=== PATIENT | female | born 1975 | race Caucasian/White ===

== ENCOUNTER 2016-12-28 12:01 | Inpatient (IN) | payer OTHER ==
[~2016-12-28] VITALS: Ht 149.9 cm; Wt 54.4 kg
[2016-12-28] MEDS ORDERED: MULTCAP8 PO (12:15)
[2016-12-28] MEDS ORDERED: LIDOCAINE 4% CREAM 5GM (LMX4) TOP ONE (14:00)
[2016-12-28] MEDS ORDERED: cefTRIAXone SOD 2 GM VIAL (J0696) IM ONE (14:00)
[2016-12-28] MEDS ORDERED: fentaNYL 100 MCG/2 ML INJECTION (J3010) IV ONE ×2 (14:00→16:30)
[2016-12-28] MEDS ORDERED: LIDOCAINE 2% MDV 20 ML VIAL SC ONE (14:00)
[2016-12-28] MEDS ORDERED: CLINDAMYCIN 600 MG in APPROPRIATE DILUENT 1 EA IV ONE (14:00)
[2016-12-28 14:39] LABS: BASO % 0.3 % (0.0-1.0); EOS # 0.4 K/mm3 (0.0-0.50); EOS % 1.8 % (0.0-3.0); LARGE UNSTAINED CELL # 0.1 K/mm3 (0.0-0.4); LARGE UNSTAINED CELL % 0.6 % (0.0-4.0); LYMPH # 2.4 K/mm3 (1.5-4.5); LYMPH % 11.7 % (24.0-44.0); MEAN CORPUSCULAR HEMOGLOBIN 34.8 pg (27.0-33.0); MEAN CORPUSCULAR HGB CONC 36.3 g/dl (32.0-36.5); MONO # 0.6 K/mm3 (0.0-0.8); NEUTROPHILS # 16.7 K/mm3 (1.8-7.7); NEUTROPHILS % 82.6 % (36.0-66.0); PLATELET COUNT, AUTOMATED 299 k/mm3 (150-450); RED CELL DISTRIBUTION WIDTH 11.8 % (11.5-14.5); WHITE BLOOD COUNT 18.6 K/mm3 (4.0-10.0)
[2016-12-28 14:57] LABS: ANION GAP 9 MEQ/L (8-16); BLOOD UREA NITROGEN 10 MG/DL (7-18); CALCIUM LEVEL 8.4 MG/DL (8.5-10.1); CARBON DIOXIDE LEVEL 27 MEQ/L (21-32); CHLORIDE LEVEL 103 MEQ/L (98-107); CREATININE FOR GFR 0.81 MG/DL (0.55-1.02); GLOMERULAR FILTRATION RATE > 60.0 (>58); GLUCOSE, FASTING 94 MG/DL (70-105); POTASSIUM SERUM 3.3 MEQ/L (3.5-5.1); SODIUM LEVEL 139 MEQ/L (136-145)
[2016-12-28] MEDS ORDERED: cefTRIAXone SOD 2 GM in D5W MINI-BAG PLUS 50 ML IV ONE (15:00)
[2016-12-28 15:07] LABS: ERYTHROCYTE SEDIMENTATION RATE 49 mm/hr (0-20)
[2016-12-28] MEDS ORDERED: ISOVUE-370 76% 100ML VIAL (Q9967) As Ordered ONE (15:29)
[2016-12-28] MEDS ORDERED: VITMTA PO (15:40)
--- NOTE | 2016-12-28 16:13 | REP ---
CT of the pelvis with IV contrast: The patient is scanned prone for evaluation of the right buttocks abscess: There is a focal soft tissue mass in the subcutaneous fat of the right buttocks measuring 2.7 cm diameter with edema of the lower overlying skin. There is also edema in the adjacent subcutaneous fat. There is no focal fluid collection within this mass or adjacent to the mass. No tract is identified to the gluteal muscles or pelvis. Impression: Focal soft tissue mass with adjacent edema in the adjacent skin and subcutaneous fat compatible with an inflammatory lesion. There is no focal fluid collection at this time. No identifiable tract. Signed by Christopher Cornelius MD 12/28/2016 04:04 P
[2016-12-28 18:55] VITALS: BP 113/58
[2016-12-28] MEDS ORDERED: POTASSIUM CHLORIDE 10 MEQ SR TABLET PO ONE (19:30)
[2016-12-28] MEDS ORDERED: MORPHINE 2 MG/ML 1ML SYRINGE IV PRN (19:30)
[2016-12-28 20:00] VITALS: BP 109/57
[2016-12-28] MEDS ORDERED: VANCOMYCIN HCL 1,000 MG, VIAL MATE ADAPTER 1 EACH in D5W 250 ML IV SCH (20:00)
--- NOTE | 2016-12-28 20:41 | HPE ---
DATE OF ADMISSION: 12/28/2016 REASON FOR ADMISSION: Cellulitis. PRIMARY CARE PROVIDER: Dr. Granado at [facility]. HISTORY OF PRESENT ILLNESS: The patient is a 41-year-old female with no past medical history who presented to the emergency room complaining of right buttock pain and swelling. The patient stated she thought it started out as a bug bite last Thursday, but has gotten progressively worse. This morning she started having chills and fevers and that is why she presented to the emergency room (ER). In the ER the patient was noted to have a large buttock cellulitis. She was unable to tolerate an ultrasound to the area so CT scan was ordered of her pelvis which showed a focal soft tissue mass with adjacent edema in the adjacent skin and subcutaneous fat compatible with an inflammatory lesion. No focal fluid collection at this time and no identifiable tract. The patient was initiated on ceftriaxone and clindamycin in the emergency room. She was started on intravenous (IV) fluids and hospitalist was called for the admission. REVIEW OF SYSTEMS: 12-point review of systems was obtained, all which was negative except for those mentioned above. PAST MEDICAL HISTORY: None. PAST SURGICAL HISTORY: Left hand surgery and removal of some skin lipomas. ALLERGIES: None. SOCIAL HISTORY: The patient smokes half a pack per day for the past 25 years. Drinks occasionally. Denies any drug use. Lives at home with her fiance. FAMILY HISTORY: Mother's side significant for heart disease and diabetes. HOME MEDICATIONS: The patient only takes a daily multivitamin. PHYSICAL FINDINGS: VITAL SIGNS: Temperature on admission was 98.6, pulse 80, respiratory rate 16, blood pressure is 121/69, pulse oximetry 100% on room air. HEENT: Pupils equal, round, reactive to light and accommodation. NECK: Supple. No jugular venous distention (JVD). LUNGS: Clear to auscultation bilaterally. ABDOMEN: Soft, nontender, nondistended. EXTREMITIES: No clubbing, cyanosis or edema. SKIN: The patient has a large right buttock cellulitis, non-draining with erythema and edema and very tender to palpation. IMAGING: CT findings as above. LABORATORY FINDINGS: WBC 18.6, hemoglobin 12.3, hematocrit 34, platelet count 299. Sodium 139, potassium 3.3, chloride 103, BUN 10, creatinine 0.81. C-reactive protein 10.7. ASSESSMENT AND PLAN: 1. Cellulitis. Will continue the patient on IV antibiotics. We will switch antibiotics to vancomycin and Zosyn. Will continue to trend C-reactive protein and leukocytosis. 2. Hypokalemia. We will replace and recheck. We will order magnesium level. 3. The patient is concerned about possible hepatitis or HIV infection, stating her daughter is an IV drug user and she was recently at her house. She denies any IV drug use herself. We will check at this time for HIV as well as a hepatitis panel. 4. Deep venous thrombosis (DVT) prophylaxis, Lovenox.
[2016-12-28] MEDS: ACETAMINOPHEN TAB 650MG DOSE (2X325MG) PO PRN (20:54)
[2016-12-28] MEDS: PIPERACILLIN/TAZOBACTAM SOD 3.375 GM in D5W MINI-BAG PLUS 50 ML IV SCH (20:59)
[2016-12-29] VITALS: BP 87/54
[2016-12-29 00:39] VITALS: BP 90/55
[2016-12-29] MEDS: PIPERACILLIN/TAZOBACTAM SOD 3.375 GM in D5W MINI-BAG PLUS 50 ML IV SCH ×2 (06:08→14:01)
[2016-12-29] MEDS ORDERED: POTASSIUM CHLORIDE 10 MEQ SR TABLET PO ONE (07:00)
[2016-12-29 07:38] LABS: MEAN CORPUSCULAR HEMOGLOBIN 32.7 pg (27.0-33.0); MEAN CORPUSCULAR HGB CONC 33.3 g/dl (32.0-36.5); MEAN CORPUSCULAR VOLUME 98.2 fl (80.0-96.0); RED CELL DISTRIBUTION WIDTH 12.1 % (11.5-14.5); WHITE BLOOD COUNT 17.3 K/mm3 (4.0-10.0)
[2016-12-29 08:00] VITALS: BP 104/56
[2016-12-29 08:01] LABS: ALBUMIN 2.9 GM/DL (3.2-5.2); ALBUMIN/GLOBULIN RATIO 0.81 (1.00-1.93); ALKALINE PHOSPHATASE 72 U/L (45-117); ALT/SGPT 9 U/L (12-78); ANION GAP 6 MEQ/L (8-16); AST/SGOT 6 U/L (15-37); BILIRUBIN,TOTAL 0.4 MG/DL (0.2-1.0); BLOOD UREA NITROGEN 5 MG/DL (7-18); CALCIUM LEVEL 7.8 MG/DL (8.5-10.1); CARBON DIOXIDE LEVEL 25 MEQ/L (21-32); CHLORIDE LEVEL 109 MEQ/L (98-107); CREATININE FOR GFR 0.91 MG/DL (0.55-1.02); GLOMERULAR FILTRATION RATE > 60.0 (>58); GLUCOSE, FASTING 96 MG/DL (70-105); MAGNESIUM LEVEL 1.7 MG/DL (1.8-2.4); POTASSIUM SERUM 3.7 MEQ/L (3.5-5.1); SODIUM LEVEL 140 MEQ/L (136-145); TOTAL PROTEIN 6.5 GM/DL (6.4-8.2)
[2016-12-29] MEDS: ACETAMINOPHEN TAB 650MG DOSE (2X325MG) PO PRN ×2 (08:29→13:58)
[2016-12-29] MEDS ORDERED: ENOXAPARIN 40 MG/0.4 ML SYRINGE (J1650) SC SCH (09:00)
[2016-12-29] MEDS ORDERED: INFLUENZA QUADRIVALENT PF VACCINE 0.5ML SYRINGE/VIAL (90686) IM SCH (09:00)
[2016-12-29] MEDS ORDERED: DALV1SOL IV (10:59)
[2016-12-29] MEDS ORDERED: IBUP800T23 PO (10:59)
[2016-12-29] MEDS ORDERED: TYLE500T78 PO (10:59)
[2016-12-29] MEDS ORDERED: MAG SULF 1GM/100ML (MAG RUN) 1 GM in APPROPRIATE DILUENT 1 EA IV ONE (11:00)
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
== END 2016-12-29 15:40 | disposition home or self-care (01) | DRG 383 ==
LOC: M ED 13:20 → M ED INP 17:58 → M PED 18:40
PROVIDERS: ADMIT Internal Medicine; ATTEND Internal Medicine Nephrology
DX: L03.317 Cellulitis of buttock (principal); E87.6 Hypokalemia; F17.200 Nicotine dependence, unspecified, uncomplicated

== ENCOUNTER 2023-11-20 20:06 | Emergency (ER) | payer OTHER, BC ==
[~2023-11-20] VITALS: Ht 152.4 cm; Wt 56.0 kg
[~2023-11-20 20:06] MED LIST: DALV1SOL IV; IBUP1TAB7 PO; MULTCAP8 PO; TYLE500T78 PO; VITMTA PO
[2023-11-20 21:58] VITALS: BP 145/76; TEMP 98.2; O2SAT 99
[2023-11-20] MEDS: IBUPROFEN 600MG TAB PO ONE (23:59)
[2023-11-20] MEDS: ONDANSETRON 4MG ORAL DISINTEGRATING TAB PO ONE (23:59)
[2023-11-21] MEDS ORDERED: ONDA4TAB6 PO (01:08)
== END 2023-11-21 01:34 | disposition home or self-care (01) ==
LOC: M ED 20:06
DX: S06.0X0A Concussion without loss of consciousness, initial encounter (principal); W22.8XXA Striking against or struck by other objects, initial encounter; Y92.89 Other specified places as the place of occurrence of the external cause; Y93.9 Activity, unspecified; Y99.0 Civilian activity done for income or pay; F41.9 Anxiety disorder, unspecified; F32.A Depression, unspecified; F17.200 Nicotine dependence, unspecified, uncomplicated

== ENCOUNTER 2024-10-10 10:27 | Emergency (ER) | payer BC, OTHER ==
[~2024-10-10] VITALS: Ht 152.4 cm; Wt 55.5 kg
[~2024-10-10 10:27] MED LIST changes: +ONDA-282 PO
[2024-10-10] MEDS ORDERED: MECL-86 (10:35)
[2024-10-10] MEDS ORDERED: RIZA10TA2 (10:35)
[2024-10-10 12:10] LABS: BASO # 0.1 10^3/uL (0.0-0.2); BASO % 0.5 % (0.0-1.0); EOS # 0.1 10^3/uL (0.0-0.5); EOS % 1.1 % (0.0-3.0); HEMATOCRIT 43.3 % (36.0-47.0); LYMPH # 2.9 10^3/uL (1.5-5.0); LYMPH % 27.8 % (24.0-44.0); MEAN CORPUSCULAR HEMOGLOBIN 33.1 pg (27.0-33.0); MEAN CORPUSCULAR HGB CONC 34.6 g/dl (32.0-36.5); MEAN CORPUSCULAR VOLUME 95.6 fl (80.0-96.0); MONO # 0.4 10^3/uL (0.0-0.8); MONO % 3.8 % (2.0-8.0); NEUTROPHILS # 6.9 10^3/uL (1.5-8.5); NEUTROPHILS % 66.4 % (36.0-66.0); PLATELET COUNT, AUTOMATED 325 10^3/uL (150-450); RED BLOOD COUNT 4.53 10^6/uL (4.00-5.40); WHITE BLOOD COUNT 10.4 10^3/uL (4.0-10.0)
[2024-10-10 12:23] LABS: INR 0.9; PARTIAL THROMBOPLASTIN TIME 27.7 SECONDS (24.8-34.2); PROTHROMBIN TIME 12.5 SECONDS (12.5-14.5)
[2024-10-10] MEDS: ACETAMINOPHEN 325 MG TAB PO ONE (13:09)
[2024-10-10 13:12] LABS: ALBUMIN 4.2 G/DL (3.2-5.2); ALKALINE PHOSPHATASE 70 U/L (35-104); ALT/SGPT 11 U/L (7.0-40); AST/SGOT 16 U/L (<34); BILIRUBIN,DIRECT 0.1 MG/DL (<0.4); BILIRUBIN,TOTAL 0.6 MG/DL (0.3-1.2); BLOOD UREA NITROGEN 24 MG/DL (9-23); CALCIUM LEVEL 9.2 MG/DL (8.5-10.1); CARBON DIOXIDE LEVEL 27 MMOL/L (20-31); CHLORIDE LEVEL 105 MMOL/L (98-107); CK-MB VALUE MASS < 1.0 NG/ML (<3.6); CPK CREATINE PHOSPHOKINASE 104 U/L (34-145); CREATININE FOR GFR 0.79 MG/DL (0.55-1.30); FREE T4 1.28 NG/DL (0.89-1.76); GLOMERULAR FILTRATION RATE > 60.0 (>51); GLUCOSE, FASTING 83 MG/DL (60-100); MB/CK RELATIVE INDEX 0.96 (< OR =4); SODIUM LEVEL 140 MMOL/L (136-145); THYROID STIMULATING HORMONE 0.531 uIU/ML (0.55-4.78); TOTAL PROTEIN 7.8 G/DL (5.7-8.2)
[2024-10-10 13:21] LABS: CK-MB VALUE MASS < 1.0 NG/ML (<3.6)
[2024-10-10 13:24] LABS: CPK CREATINE PHOSPHOKINASE 113 U/L (34-145); MB/CK RELATIVE INDEX 0.88 (< OR =4)
[2024-10-10 17:39] VITALS: BP 114/78; TEMP 97.5; O2SAT 99
== END 2024-10-10 17:42 | disposition home or self-care (01) ==
LOC: M ED 10:27
DX: R42 Dizziness and giddiness (principal); H53.8 Other visual disturbances; G43.909 Migraine, unspecified, not intractable, without status migrainosus; Z87.891 Personal history of nicotine dependence